=== PATIENT | female | born 1955 | race Caucasian/White ===

== ENCOUNTER 2018-06-09 22:05 | Emergency (ER) | payer MEDICARE ==
[2018-06-09] MEDS ORDERED: Lactated Ringers 1,000 ML IV ONE (23:15)
[2018-06-09] MEDS ORDERED: Ondansetron 4 MG Tab.DIS PO ONE (23:15)
[2018-06-09] MEDS ORDERED: Sodium Chloride 0.9% 10 ML Syringe FLUSH PRN (23:15)
--- NOTE | 2018-06-09 23:20 | EDM.PDOC ---
ED HPI GENERAL MEDICAL PROBLEM - General Chief Complaint: Gastrointestinal Problem Stated Complaint: FEELING SICK Time Seen by Provider: 06/09/18 23:07 Source of Information: Reports: Patient, Family, RN Notes Reviewed History Limitations: Reports: No Limitations - History of Present Illness INITIAL COMMENTS - FREE TEXT/NARRATIVE: 63-year-old female presents emergency department day complaint of diarrhea, she has had prolonged diarrhea for about 10 days did recently travel to [place] was in [place] for about a week did not eat anything out of the unusual. All these tried to take bottled water, always had eaten restaurants or home cooked meals and the diarrhea developed the night before departure in [place] she has visited the emergency department in by mouth [place] about 36 hours prior started on ciprofloxacin three-day course denies any fevers is nauseated - Related Data Allergies Allergy/AdvReac Type Severity Reaction Status Date / Time No Known Allergies Allergy Verified 06/09/18 22:38 Home Meds: Home Meds Aspirin [Halfprin] 81 mg PO DAILY 06/09/18 [History] Calcium Carb & Citrate/Vit D3 [Citracal + D ER] 1 each PO TID 06/09/18 [History] Ciprofloxacin HCl [Cipro] 500 mg PO BID 06/09/18 [History] Cyanocobalamin (Vitamin B-12) [B-12] 1,000 mcg PO ASDIRECTED 06/09/18 [History] Estradiol/Norethindrone Acet [Estradiol-Noreth 1-0.5 MG] 1 mg PO WEEKLY [History] Latanoprost/Pf [Latanoprost 0.005% Eye Drop] 1 drop EYEBOTH DAILY 06/09/18 [ History] Levothyroxine Sodium [Synthroid] 112 mcg PO ACBREAKFAST 06/09/18 [History] Timolol [Betimol] 1 drop EYERT DAILY 06/09/18 [History] hydroCHLOROthiazide [Hydrochlorothiazide] 25 mg PO DAILY 06/09/18 [History] Past Medical History HEENT History: Reports: Glaucoma Cardiovascular History: Reports: Hypertension 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 Musculoskeletal History: Reports: Fracture Other Musculoskeletal History: foot fracture, broken nose Endocrine/Metabolic History: Reports: Other (See Below) Other Endocrine/Metabolic History: cyst on both lobes of thyroid Hematologic History: Reports: B12 Deficiency - Infectious Disease History Infectious Disease History: Reports: Chicken Pox - Past Surgical History HEENT Surgical History: Reports: Tonsillectomy Female Surgical History: Reports: Hysterectomy Endocrine Surgical History: Reports: Thyroidectomy Social & Family History - Tobacco Use Smoking Status *Q: Never Smoker Second Hand Smoke Exposure: No - Caffeine Use Caffeine Use: Reports: Coffee - Recreational Drug Use Recreational Drug Use: No ED ROS GENERAL - Review of Systems Review Of Systems: See Below Constitutional: Denies: Fever, Chills HEENT: Reports: No Symptoms Respiratory: Reports: No Symptoms Cardiovascular: Reports: No Symptoms GI/Abdominal: Reports: Abdominal Pain (Cramping), Diarrhea, Flatus, Nausea. Denies: Vomiting : Reports: No Symptoms Musculoskeletal: Reports: No Symptoms Skin: Reports: No Symptoms ED EXAM, GI/ABD - Physical Exam Exam: See Below Exam Limited By: No Limitations General Appearance: Alert, WD/WN, No Apparent Distress Respiratory/Chest: No Respiratory Distress, Lungs Clear, Normal Breath Sounds, No Accessory Muscle Use Cardiovascular: Regular Rate, Rhythm, No Murmur GI/Abdominal Exam: Soft, Non-Tender Course - Vital Signs Last Recorded V/S: Last Vital Signs Temp 95.4 F 06/09/18 22:34 Pulse 71 06/09/18 23:37 Resp 18 06/09/18 23:37 BP 159/76 H 06/09/18 23:37 Pulse Ox 100 06/09/18 23:37 - Orders/Labs/Meds Orders: Active Orders 24 hr Category Date Time Status Peripheral IV Care [RC] . DIRECTED Care 06/09/18 23:15 Active CLOSTRIDIUM DIFFICILE BY PCR [RM] Stat Lab 06/09/18 22:30 Ordered CULTURE STOOL + SHIGATOX [RM] Stat Lab 06/09/18 22:32 Ordered GIARDIA LAMBLIA AG, EIA Stat Lab 06/09/18 22:30 Received WBC, STOOL [OP] Stat Lab 06/09/18 22:33 Ordered Sodium Chloride 0.9% [Saline Flush] Med 06/09/18 23:15 Active 10 ml FLUSH ASDIRECTED PRN Peripheral IV Insertion Adult [OM.PC] Urgent Oth 06/09/18 23:15 Ordered Medication Orders Sodium Chloride (Saline Flush) 10 ml FLUSH ASDIRECTED PRN PRN Reason: Keep Vein Open Last Admin: 06/09/18 23:35 Dose: 10 ml Labs: Laboratory Tests 06/09/18 06/09/18 Range/Units 23:35 23:35 WBC 10.9 (4.5-11.0) K/uL RBC 5.00 (3.30-5.50) M/uL Hgb 14.8 (12.0-15.0) g/dL Hct 41.9 (36.0-48.0) % MCV 84 (80-98) fL MCH 30 (27-31) pg MCHC 35 (32-36) % Plt Count 256 (150-400) K/uL Neut % (Auto) 56 (36-66) % Lymph % (Auto) 20 L (24-44) % [place] % (Auto) 5 (2-6) % Eos % (Auto) 19 H (2-4) % Baso % (Auto) 0 (0-1) % Sodium 137 L (140-148) mmol/L Potassium 4.1 (3.6-5.2) mmol/L Chloride 100 (100-108) mmol/L Carbon Dioxide 25 (21-32) mmol/L Anion Gap 16.1 H (5.0-14.0) mmol/L BUN 15 (7-18) mg/dL Creatinine 0.9 (0.6-1.0) mg/dL Est Cr Clr Drug Dosing 60.60 mL/min Estimated GFR (MDRD) > 60 (>60) Glucose 122 H (74-106) mg/dL Calcium 8.9 (8.5-10.1) mg/dL Total Bilirubin 0.6 (0.2-1.0) mg/dL AST 22 (15-37) U/L ALT 22 (12-78) U/L Alkaline Phosphatase 86 (46-116) U/L Total Protein 6.6 (6.4-8.2) g/dL Albumin 3.7 (3.4-5.0) g/dL Globulin 2.9 (2.3-3.5) g/dL Albumin/Globulin Ratio 1.3 (1.2-2.2) Meds: Medications Generic Name Dose Route Start Last Admin Trade Name Freq PRN Reason Stop Dose Admin Sodium Chloride 10 ml 06/09/18 23:15 06/09/18 23:35 Saline Flush FLUSH 10 ml ASDIRECTED PRN Administration Keep Vein Open Discontinued Medications Generic Name Dose Route Start Last Admin Trade Name Rita PRN Reason Stop Dose Admin Hyoscyamine 0.125 mg 06/10/18 00:41 06/10/18 00:51 Hyomax-Sl SL 06/10/18 00:42 0.125 mg ONETIME ONE Administration Lactated Ringer's 1,000 mls @ 999 mls/hr 06/09/18 23:15 06/09/18 23:35 Ringers, Lactated IV 06/10/18 00:15 999 mls/hr BOLUS ONE Administration Ondansetron HCl 4 mg 06/09/18 23:15 06/09/18 23:20 Zofran Odt PO 06/09/18 23:16 4 mg ONETIME ONE Administration Prochlorperazine Edisylate 5 mg 06/10/18 00:40 06/10/18 00:51 Compazine IVPUSH 06/10/18 00:41 5 mg ONETIME ONE Administration Departure - Departure Time of Disposition: 01:24 Disposition: Home, Self-Care 01 Condition: Fair Clinical Impression: Diarrhea Qualifiers: Diarrhea type: infectious Qualified Code(s): A09 - Infectious gastroenteritis and colitis, unspecified - Discharge Information Referrals: PCP,None [Primary Care Provider] - Forms: ED Department Discharge Additional Instructions: Use Zofran as needed to control nausea and vomiting symptoms, use the hyoscyamine for abdominal cramping, please follow-up with your primary care provider upon return home if no improvement, we'll contact you when culture results become available - My Orders Last 24 Hours: My Active Orders 06/09/18 22:30 CLOSTRIDIUM DIFFICILE BY PCR [RM] Stat GIARDIA LAMBLIA AG, EIA Stat 06/09/18 22:32 CULTURE STOOL + SHIGATOX [RM] Stat 06/09/18 22:33 WBC, STOOL [OP] Stat 06/09/18 23:15 Peripheral IV Care [RC] . DIRECTED Sodium Chloride 0.9% [Saline Flush] 10 ml FLUSH ASDIRECTED PRN Peripheral IV Insertion Adult [OM.PC] Urgent - Assessment/Plan Last 24 Hours: My Active Orders 06/09/18 22:30 CLOSTRIDIUM DIFFICILE BY PCR [RM] Stat GIARDIA LAMBLIA AG, EIA Stat 06/09/18 22:32 CULTURE STOOL + SHIGATOX [RM] Stat 06/09/18 22:33 WBC, STOOL [OP] Stat 06/09/18 23:15 Peripheral IV Care [RC] . DIRECTED Sodium Chloride 0.9% [Saline Flush] 10 ml FLUSH ASDIRECTED PRN Peripheral IV Insertion Adult [OM.PC] Urgent Plan: Assessment Acuity = acute Site and laterality = diarrhea Etiology = probably viral related to recent travel Manifestations = cramping abdominal discomfort, nausea Location of injury = Home Lab values = CBC, CMP unremarkab, stool W BC is negative, C. difficile negative , Giardia and culture pending Plan She had some improvement with a liter of fluids, Zofran, Compazine and Anaspaz, prescription written for Zofran 4 mg ODT 1 tab by mouth every 8 hours when necessary total #10 also hyoscyamine 0.125 mg sublingual 1 tab by mouth 3 times a day when necessary total #20, will contact her when the stool cultures become available follow-up with primary care upon return home This note was dictated using [employer] voice recognition software please call with any questions on syntax or grammar.
[2018-06-10] MEDS ORDERED: Prochlorperazine 10 MG/2 ML SDV IVPUSH ONE (00:40)
[2018-06-10] MEDS ORDERED: Hyoscyamine 0.125 MG Tab.SL SL ONE (00:41)
== END 2018-06-10 01:38 | disposition home or self-care (01) ==
LOC: JP.ED 22:05
DX: A09 Infectious gastroenteritis and colitis, unspecified (principal); I10 Essential (primary) hypertension; Z79.899 Other long term (current) drug therapy; Z79.82 Long term (current) use of aspirin
CPT/HCPCS: 36415; 80053; 85025; 87046; 87329; 87493; 87899; 89055; 96361; 96374; 99284; A9270; J0780; J7050; J7120